=== PATIENT | female | born 1955 | race African-American/Black ===

== ENCOUNTER 2020-09-28 04:35 | Day surgery (SDC) | payer OTHER ==
[2020-09-26 09:21] VITALS: BMI 27.8
[2020-09-28] MEDS ORDERED: MIDAZOLAM HCL 2 MG/2 ML SINGLE DOSE VIAL ONE (09:11)
[2020-09-28] MEDS ORDERED: PROPOFOL 20 ML ONE (09:11)
[2020-09-28] MEDS ORDERED: ceFAZolin 2 GRAM PREMIX BAG IVPB ONE (09:36)
[2020-09-28] MEDS ORDERED: ceFAZolin SODIUM 1 GM VIAL ONE (09:39)
[2020-09-28] MEDS ORDERED: LIDOCAINE HCL 1%, 10 MG/ML (20ML VIAL) INF ONE (09:44)
[2020-09-28] MEDS ORDERED: BUPIVACAINE HCL/PF 0.5% (5 MG/ML) 30 ML VIAL IJ ONE (09:44)
[2020-09-28] MEDS ORDERED: KETOROLAC TROMETHAMINE 30 MG/1 ML VIAL ONE (10:01)
[2020-09-28 11:47] VITALS: BP 137/75; PULSE 74; TEMP 98
== END 2020-09-28 12:00 | disposition home or self-care (01) ==
LOC: JASU-SURG 04:35
PROVIDERS: ATTEND Orthopaedic Surgery
PROC: 0LN50ZZ Release Right Lower Arm and Wrist Tendon, Open Approach (ICD-10-PCS; principal; 2020-09-28 09:00)
DX: M65.4 Radial styloid tenosynovitis [de Quervain] (principal)